=== PATIENT | female | born 1950 | race Caucasian/White ===

== ENCOUNTER → 2016-09-28 | Day surgery (SDC) | payer MEDICARE ==
[~2016-09-28] MED LIST: DIAZ5TAB PO; FLUO40CA PO; LEVO88TA2 PO; LIDOCAINE HCL 1% PF 30 ML VIAL INFIL ONE; MENE1.254 PO; MORP1CAP PO; MS C100T PO; OMEP20TA PO; OXYC30TA PO; SODIUM CHLORIDE 0.9% 10 ML VIAL ONE; TRIAMCINOLONE ACETONIDE 40 MG/ML VIAL NERV BLOCK ONE; methylPREDNISolone ACETATE 80 MG/ML VIAL ONE
--- NOTE | 2016-10-01 15:53 | M6 ---
cc: GIOVANNI VELA M.D. DATE: 09/28/2016 DATE OF : 1950 PROCEDURE S1 epidural steroid injection. History and physical was completed and signed. Consent was signed. Procedure site was marked. Medications were listed and reconciled. Pain score was recorded. Allergies were noted. Time out was taken. Fluoroscopy time was recorded where applicable. Sedation was administered or directed by Dr. Vela. The patient was given oxygen. The patient was monitored by a registered nurse. Total procedure time was greater than 15 minutes. IV was started, but blood pressure cuff, pulse oximeter and EKG were applied. The patient was placed in the prone position on a Oscar table. Her back was prepped with alcohol and 10% Betadine solution and draped with sterile drapes. Fluoroscopy was used to visualize the S1 neural foramen. The skin was infiltrated with 1% Xylocaine using a 27 gauge needle then a 3-1/2-inch 22-gauge Chiba needle was advanced through the S1 foramen on the left side. There was negative aspiration for blood or any other type of fluid and the patient was given 10 mL of half percent Xylocaine 80 mg of Depo-Medrol. Following this the patient was taken to the recovery room with stable vital signs neurologically intact. W. MD ANNITA Dunn/nancy /7:41 AM /3:42 PM
== END | disposition home or self-care (01) ==
LOC: PHSDC 06:40
PROVIDERS: ATTEND Pain Medicine Interventional Pain Medicine
DX: M54.5 Low back pain (principal); M79.605 Pain in left leg; M79.604 Pain in right leg
CPT/HCPCS: 62323; J1040; J3301

== ENCOUNTER → 2016-12-18 | Day surgery (SDC) | payer MEDICARE ==
[~2016-12-18] MED LIST changes: -MS C100T PO; -TRIAMCINOLONE ACETONIDE 40 MG/ML VIAL NERV BLOCK ONE
--- NOTE | 2016-12-19 22:03 | M6 ---
cc: GIOVANNI DAVILA M.D. DATE: 12/18/2016. DATE OF : 1950. PROCEDURE PERFORMED: Caudal epidural steroid injection. DESCRIPTION OF THE PROCEDURE IN DETAIL: An IV was started, blood pressure cuff, pulse oximeter and EKG were applied. The patient was placed in the prone position, sedated with small amounts of Versed and propofol titrated to effect. Vital signs were monitored and remained stable throughout the procedure. The sacral and coccygeal area were scrubbed with antimicrobial solution and prepped with 10% Betadine solution. The sacral hiatus was palpated. A 2-1/2-inch 20-gauge spinal needle was inserted easily on the first attempt. There was negative aspiration for blood or CSF. There was no apparent paresthesia. The patient was slowly given 20 mL of 0.5% Xylocaine which contained 80 mg of Depo-Medrol. The patient was taken to the recovery area with stable vital signs, neurologically intact. W. MD ANNITA Dunn/JAXON /8:50 AM /9:59 PM
== END | disposition home or self-care (01) ==
LOC: PHSDC 07:42
PROVIDERS: ATTEND Pain Medicine Interventional Pain Medicine
DX: M79.662 Pain in left lower leg (principal); M79.661 Pain in right lower leg
CPT/HCPCS: 62323; J1040

== ENCOUNTER → 2017-03-17 | Day surgery (SDC) | payer MEDICARE ==
--- NOTE | 2017-03-18 13:37 | M6 ---
cc: GIOVANNI DAVILA M.D. DATE 03/17/2017 DATE OF 1950 PROCEDURE Caudal epidural steroid injection. History and physical was completed and signed. Consent was signed. Procedure site was marked. Medications were listed and reconciled. Pain score was recorded. Allergies were noted. Time out was taken. Fluoroscopy time was recorded where applicable. PROCEDURE NOTE Blood pressure cuff, pulse oximeter and EKG were applied. The patient was placed in the prone position. The area over the coccyx and sacrum was prepped with alcohol and 10% Betadine solution. The sacral hiatus was palpated. A 27-gauge needle was used to inject 3 mL of 1% lidocaine and then a 20-gauge, 2-1/2-inch needle was advanced into the sacral hiatus. Fluoroscopy confirmed the needle was between the anterior and posterior lamina of the sacrum. There was negative aspiration for blood or any other type of fluid and the patient was given 15 mL of 0.5% Xylocaine, 80 mg of Depo-Medrol. Following this the patient was taken to the recovery room with stable vital signs, neurologically intact. W. MD ANNITA Dunn/MIKHAIL /9:43 AM /1:30 PM
== END | disposition home or self-care (01) ==
LOC: PHSDC 08:30
PROVIDERS: ATTEND Pain Medicine Interventional Pain Medicine
DX: M79.605 Pain in left leg (principal); M79.604 Pain in right leg
CPT/HCPCS: 62323; J1040

== ENCOUNTER → 2017-10-04 | Day surgery (SDC) | payer MEDICARE ==
[~2017-10-04] MED LIST changes: +LIDOCAINE HCL 1% 30 ML VIAL INFIL ONE; -LIDOCAINE HCL 1% PF 30 ML VIAL INFIL ONE; +NAPR500 PO; -OMEP20TA PO; +OMEP20TA93 PO
--- NOTE | 2017-10-04 08:03 | M6 ---
cc: Renard Vela MD DATE: 10/04/2017 PROCEDURE: Caudal epidural steroid injection. PROCEDURE NOTE: History and physical was completed and signed. Consent was signed. Procedure site was marked. Medications were listed and reconciled. Pain score was recorded. Allergies were noted. Time out was taken. Fluoroscopy time was recorded where applicable. Blood pressure cuff, pulse oximeter and EKG were applied. The patient was placed in the prone position. Her sacral area and coccyx area was prepped with alcohol and 10% Betadine solution. The sacral hiatus was visualized under fluoroscopy. The skin was infiltrated with 1% Xylocaine, using a 27-gauge needle. Then, a 2.5 inch, 20-gauge spinal needle was advanced into the sacral hiatus. Lateral fluoroscopy confirmed the needle was between the anterior and posterior lamina of the sacrum. There was negative aspiration for blood or any other type of fluid and the patient was given 20 mL of 0.5% Xylocaine and 80 mg of Depo-Medrol. Following this, the patient was observed in the recovery area with stable vital signs prior to being discharged. Renard Vela MD [facility] , 07:53 AM , 08:01 AM
== END | disposition home or self-care (01) ==
LOC: PHSDC 06:43
PROVIDERS: ATTEND Pain Medicine Interventional Pain Medicine
DX: M79.605 Pain in left leg (principal); M54.5 Low back pain; M79.604 Pain in right leg
CPT/HCPCS: 62323; J1040